=== PATIENT | female | born 1935 | race Caucasian/White ===

== ENCOUNTER 2020-07-17 07:34 | Outpatient (CLI) | payer MEDICARE | END 2020-07-17 07:35 | disposition home or self-care (01) | LOC: CSHCT 07:34 | PROVIDERS: ATTEND Registered Nurse | DX: E27.8 Other specified disorders of adrenal gland (principal); D35.02 Benign neoplasm of left adrenal gland; K57.90 Diverticulosis of intestine, part unspecified, without perforation or abscess without bleeding | CPT/HCPCS: 74177 ==

== ENCOUNTER 2022-06-09 09:55 | Outpatient (CLI) | payer MEDICARE | END 2022-06-09 09:56 | disposition home or self-care (01) | LOC: CSHMRI 09:55 | PROVIDERS: ATTEND Nurse Practitioner Family | DX: S22.050A Wedge compression fracture of T5-T6 vertebra, initial encounter for closed fracture (principal); S32.010A Wedge compression fracture of first lumbar vertebra, initial encounter for closed fracture; S22.030A Wedge compression fracture of third thoracic vertebra, initial encounter for closed fracture; S22.080A Wedge compression fracture of T11-T12 vertebra, initial encounter for closed fracture; M47.816 Spondylosis without myelopathy or radiculopathy, lumbar region; Z98.890 Other specified postprocedural states | CPT/HCPCS: 72146; 72148 ==